=== PATIENT | female | born 1970 | race Caucasian/White ===

== ENCOUNTER 2018-07-24 07:45 | Observation (INO) | payer OTHER ==
--- NOTE | 2018-07-14 20:29 | HP ---
AMENDED REPORT NOW INCLUDES DESIGNATED COSIGNER PREOPERATIVE HISTORY AND PHYSICAL: DATE OF ADMISSION/SURGERY: 07/24/18 DATE OF OFFICE VISIT: 07/14/18 ATTENDING PHYSICIAN: Dr. Santa Navarro.* (DICTATED BY LAUREN ANTOINE) PROCEDURE: Left total knee arthroplasty. CHIEF COMPLAINT: Left knee pain. HISTORY OF PRESENT ILLNESS: Ms. Looney is a 47-year-old female with complaints of left knee pain. She has failed conservative management and has elected to proceed with left total knee arthroplasty, which is scheduled for 07/24/18. PAST MEDICAL HISTORY: Significant for asthma and osteoarthritis. PAST SURGICAL HISTORY: Left knee arthroscopy, , gastric bypass surgery. CURRENT MEDICATIONS: 1. Ibuprofen 800 mg 1 tab q.8 hours p.r.n. 2. Lasix 20 mg 1 by mouth 3 times weekly, mainly takes this in the summer, has not taken recently. 3. Singulair 10 mg 1 by mouth every day. 4. Xyzal daily. 5. Meloxicam 15 mg 1 tab by mouth with food once daily. ALLERGIES: No known drug allergies. FAMILY HISTORY: Cancer with her mother and diabetes. SOCIAL HISTORY: The patient lives with her , works as a nurse at [employer]. She denies use of tobacco, alcohol, or recreational drug use. REVIEW OF SYSTEMS: 14 systems were reviewed with the patient. Positive for left knee pain, swelling. Negative for fever, chills, chest pain, shortness of breath, vomiting, headache, or dizziness. PHYSICAL EXAMINATION GENERAL: She is alert and oriented x3, in no acute distress. VITAL SIGNS: Height 70 inches, weight 213 pounds. Pulse 88, BP 120/82, temp 99. BMI 30.6. HEENT: PERRLA. NECK: Supple. LUNGS: Clear to auscultation bilaterally. HEART: Regular rate and rhythm. No murmur auscultated. ABDOMEN: Soft, nontender. Normoactive bowel sounds x4 quadrants. MUSCULOSKELETAL: Left lower extremity shows her skin to be intact. No abrasions or open wounds. Moderate effusion of the left knee joint with tenderness along the medial joint line. She has roughly 12-degree valgus deformity. No varus or valgus instability. Tender along the medial joint line. 10 degrees to 120 degrees motion with patellofemoral crepitus. Circulation and sensation intact. Active dorsiflexion and plantarflexion of the left ankle. ASSESSMENT AND PLAN: Ms. Looney is a 47-year-old female with osteoarthritis of the left knee. She failed conservative management and has elected to proceed with a left total knee arthroplasty, which is scheduled for 07/24/[address] Navarro discussed risks and benefits of surgery at today's visit and all of her questions were answered. She will follow up with Dr. Navarro 2 weeks post surgery. LAUREN ANTOINE [id number]/[facility] #: [id number] [place]
[~2018-07-24 07:45] MED LIST: Acetaminophen IV 1GM/100ML * 1,000 MG/100 ML VIAL IVPB ONE; Buffered Lidocaine 0.9% SYRIN* 5 ML/SYR SYRINGE INTRADERM ONE; Dexamethasone IV* 4 MG/ML 1 ML (4 MG) IV SLOW PU ONE; Famotidine IV* 10 MG/ML 2 ML (20 mg) IV ONE; Gabapentin CAP(*) 300 MG PO ONE; Tranexamic Acid 1,000 MG in NS 0.9% 50 ML IV ONE; celeCOXIB CAP* 200 MG PO ONE
[2018-07-24] MEDS ORDERED: Dexamethasone IV* 4 MG/ML 1 ML (4 MG) ONE (09:04)
[2018-07-24] MEDS ORDERED: Famotidine IV* 10 MG/ML 2 ML (20 mg) ONE (09:04)
[2018-07-24] MEDS ORDERED: celeCOXIB CAP* 100 MG ONE (09:05)
[2018-07-24] MEDS ORDERED: Buffered Lidocaine 0.9% SYRIN* 5 ML/SYR SYRINGE ONE (09:05)
[2018-07-24] MEDS ORDERED: ceFAZolin 2 GM in NS PREMIX(*) 2 GM/100 ML BAG IVPB ONE (09:05)
[2018-07-24] MEDS ORDERED: Gabapentin CAP(*) 300 MG ONE (09:05)
[2018-07-24] MEDS ORDERED: Acetaminophen IV 1GM/100ML * 100 ML ONE (09:34)
[2018-07-24] MEDS ORDERED: fentaNYL* 50 MCG/ML 5 ML VIAL (250 MCG VIAL) ONE (09:47)
[2018-07-24] MEDS ORDERED: Atracurium* 10 MG/ML 10 ML VIAL ONE (09:47)
[2018-07-24] MEDS ORDERED: Midazolam* 1 MG/ML 5 ML VIAL (5 MG) ONE (09:47)
[2018-07-24] MEDS ORDERED: Ondansetron INJ* 2 MG/ML VIAL ONE ×2 (09:48→14:33)
[2018-07-24] MEDS ORDERED: Propofol* 10 MG/ML 20 ML BTL IV PUSH ONE (09:48)
[2018-07-24] MEDS ORDERED: Lidocaine 2% PF * 5 ML VIAL ONE (09:48)
[2018-07-24] MEDS ORDERED: ROPIVACAINE 5 MG/ML 30 ML BTL (0.5%) ONE (09:54)
[2018-07-24] MEDS ORDERED: Bupivacaine 0.5% SDV PF* 30ML VIAL ONE (10:18)
[2018-07-24] MEDS ORDERED: Glycopyrrolate IV* 0.2 MG/ML 1 ML VIAL ONE (10:37)
[2018-07-24] MEDS ORDERED: fentaNYL* 50 MCG/ML 2 ML VIAL (100 MCG VIAL) ONE ×4 (10:45→13:16)
[2018-07-24] MEDS ORDERED: Scopolamine 1.5 mg* PATCH TRANSDERM PRN (11:26)
[2018-07-24] MEDS ORDERED: Naloxone* 0.4 MG/ML 1 ML VIAL IV PRN (11:26)
[2018-07-24] MEDS ORDERED: DiMENhydriNATE IV* 50 MG/ML VIAL IV PUSH PRN (11:26)
[2018-07-24] MEDS ORDERED: Ondansetron INJ* 2 MG/ML VIAL IV PRN ×2 (11:26→12:36)
[2018-07-24] MEDS ORDERED: Bisacodyl SUPP* 10 MG SUPP PR PRN (12:36)
[2018-07-24] MEDS ORDERED: Cyclobenzaprine TAB* 10 MG PO PRN (12:36)
[2018-07-24] MEDS ORDERED: Morphine VIAL* 4 MG/ML VIAL (1 ml vial) IV PRN (12:36)
[2018-07-24] MEDS ORDERED: diPHENhydraMINE IV* 50 MG/ML 1 ml VIAL (BENADRYL) IV PRN (12:36)
[2018-07-24] MEDS ORDERED: Ondansetron ODT TAB* 4 MG PO PRN (12:36)
[2018-07-24] MEDS ORDERED: Polyethylene Glycol 3350* 17 GM PACKET PO PRN (12:36)
[2018-07-24] MEDS ORDERED: traMADol TAB* 50 MG PO PRN (12:36)
[2018-07-24] MEDS ORDERED: oxyCODONE/Acetamin 5/325 MG* TAB PO PRN (12:36)
[2018-07-24] MEDS ORDERED: Magnesium Hydroxide LIQ* 30 ML UDC PO PRN (12:36)
[2018-07-24] MEDS ORDERED: HYDROmorphone INJ1* 1 MG/ML SYRINGE ONE (12:39)
[2018-07-24] MEDS: HYDROmorphone INJ1* 1 MG/ML SYRINGE IV PRN ×3 (12:40→13:37)
[2018-07-24] MEDS: fentaNYL* 50 MCG/ML 2 ML VIAL (100 MCG VIAL) IV PRN ×3 (12:41→13:29)
[2018-07-24] MEDS ORDERED: Furosemide TAB* 20 MG PO PRN (12:41)
[2018-07-24] MEDS ORDERED: Albuterol HFA INHALER* 8 gm MDI INH PRN (12:41)
[2018-07-24] MEDS ORDERED: Levonorgestrel (IUD) (NF) 20 MCG/24 HR IUD IU SCH (13:00)
[2018-07-24] MEDS ORDERED: oxyCODONE/Acetamin 5/325 MG* TAB ONE (13:32)
[2018-07-24] MEDS: oxyCODONE/Acetamin 5/325 MG* TAB PO PRN (13:33)
--- NOTE | 2018-07-24 16:38 | PN ---
Progress Note - Progress Note Date of Service: 07/24/18 Note: patient recently took Percocet and is unable to be aroused. Per nurse she has is able to dorsi flex. Has a palpable 2+ DP pulse. VSS. dressing c/d/i
[2018-07-24] MEDS: Acetaminophen TAB* 325 MG PO SCH (18:08)
[2018-07-24] MEDS: ceFAZolin 1 GM in Dextrose (*) 1 GM/50 ML BAG IVPB SCH (18:28)
[2018-07-24] MEDS: Docusate CAP* 100 MG PO SCH (21:00)
[2018-07-24] MEDS: Magnesium Hydroxide LIQ* 30 ML UDC PO SCH (21:00)
[2018-07-24] MEDS: oxyCODONE TAB* 5 MG TAB PO PRN (22:01)
[2018-07-25] MEDS: ceFAZolin 1 GM in Dextrose (*) 1 GM/50 ML BAG IVPB SCH ×2 (02:07→09:50)
[2018-07-25] MEDS: Acetaminophen TAB* 325 MG PO SCH ×2 (02:11→09:35)
[2018-07-25 05:10] LABS: Hematocrit 32 % (35-47); Hemoglobin 10.6 g/dl (12.0-16.0); Mean Platelet Volume 9.1 fL (7.4-10.4); Platelet Count 238 10^3/ul (150-450)
[2018-07-25] MEDS: oxyCODONE/Acetamin 5/325 MG* TAB PO PRN ×3 (05:20→13:05)
[2018-07-25 05:25] LABS: INR 0.99 (0.77-1.02)
[2018-07-25 05:36] LABS: EGFR Non-African American 93.6 (>60)
[2018-07-25] MEDS: oxyCODONE TAB* 5 MG TAB PO PRN (08:03)
[2018-07-25] MEDS: Docusate CAP* 100 MG PO SCH (08:03)
[2018-07-25] MEDS: Magnesium Hydroxide LIQ* 30 ML UDC PO SCH (08:04)
[2018-07-25] MEDS ORDERED: Aspirin TAB* 325 MG PO SCH (09:00)
[2018-07-25] MEDS ORDERED: Cetirizine* 10 MG TAB PO SCH (09:00)
[2018-07-25] MEDS ORDERED: Montelukast Sodium TAB* 10 MG PO SCH (09:00)
[2018-07-25] MEDS ORDERED: Enoxaparin(*) 40 MG/0.4 ML SYR SUBCUT SCH (10:00)
--- NOTE | 2018-07-25 10:18 | PN ---
Progress Note - Progress Note Date of Service: 07/25/18 SOAP: Subjective: []Patient seen OOB in chair, doing well. No SOB, CP. Pain managed. Feels ready to go home. Objective: [] Vital Signs Temp 98.2 F 07/25/18 07:54 Pulse 69 07/25/18 07:54 Resp 16 07/25/18 09:56 BP 126/62 07/25/18 07:54 Pulse Ox 100 07/25/18 07:54 Intake & Output 07/24/18 07/25/18 07/25/18 18:59 06:59 18:59 Intake Total 1999 1250 230 Output Total 750 1500 Balance 1250 -250 230 Weight 214 lb Intake: IV Fluids 1999 lr 2000 IVPB 50 ABX - CEFAZOLIN 50 Oral 1200 230 Output: Ventura 500 1500 Estimated Blood Loss 250 Laboratory Results - last 24 hr 07/25/18 07/25/18 07/25/18 04:42 04:42 04:42 Hgb 10.6 L Hct 32 L Plt Count 238 MPV 9.1 INR (Anticoag Therapy) 0.99 Sodium 137 Potassium 3.7 Chloride 102 Carbon Dioxide 29 Anion Gap 6 BUN 12 Creatinine 0.67 Est GFR ( Amer) 113.2 Est GFR (Non-Af Amer) 93.6 BUN/Creatinine Ratio 17.9 Glucose 105 H Calcium 8.4 L Knee dressing changed, wound benign, no drainage calf NT and soft NVI distally Assessment: []s/p LTK POD #1 Plan: []PT/OT- home later today after afternoon PT session. ASA 325 mg po BID for DVT prophylaxis Percocet 5/325 mg med to bed Follow up with Dr. Navarro 10-14 days as scheduled.
--- NOTE | 2018-07-25 11:02 | OP ---
OPERATIVE REPORT: DATE OF OPERATION: 07/24/18. DATE OF : 68. ATTENDING SURGEON: Santa Navarro MD. SOAPSTONER: LAUREN Talavera. Ms. Quiroz did help throughout the procedure with preparation of the leg, wound retraction, manipul ation of the knee, and wound closure. ANESTHESIOLOGIST: Dr. Best. ANESTHESIA: Spinal. PRE-OP DIAGNOSIS: Severe endstage degenerative osteoarthritis of the left knee joint with valgus de formity. POST-OP DIAGNOSIS: Severe endstage degenerative osteoarthritis of the left knee joint with valgus de formity. OPERATIVE PROCEDURE: Left total knee arthroplasty. TOURNIQUET TIME: 48 minutes. COMPLICATIONS: None. ESTIMATED BLOOD LOSS: 200 mL. SPECIMEN: Bone and cartilage from the left knee joint sent to Pathology. HARDWARE USED: This is cemented [employer] total knee arthroplasty hardware. Two packages of S implex bone cement. For the femur, left, a size 6 narrow, Oxinium, posterior stabilized, Legion femo ral component. For the tibia, size 5, left Elvia II tibial base plate. For the insert, a 9-mm pos terior stabilized articular insert, size 5/6 and for the patella, a 35-mm 3 peg all poly patella with 7.5 thickness. BRIEF HISTORY/INDICATIONS: Ms. Looney is a 48-year-old female with years of increasingly severe l eft knee pain and increasing valgus deformity. She failed conservative treatment with antiinflammato florian, pain medications, intra-articular injections, and physical therapy. Radiographs showed bone-on -bone arthritis. Due to continued pain and decreased quality of life, the patient elected to undergo a left total knee arthroplasty. Informed consent was obtained from the patient. The patient understood the risks of surgery included , but were not limited to, bleeding, infection, damage to nearby structures, continued pain, need for further surgery, intraoperative fracture, nerve palsy, hardware failure or loosening, knee stiffness , loss of motion, stroke, heart attack, blood clot, and . She wished to proceed. INTRAOPERATIVE FINDINGS: Intraoperatively, the patient was noted to have severe endstage arthritis w ith complete loss of cartilage in all 3 compartments. She had a 12-degree valgus deformity and 10-de gree flexion contracture to begin the case. These were corrected to anatomic full extension and 5 deg letty valgus by the end of the case. She was noted to have extensive osteophyte formation around the entire distal femur and patella. DESCRIPTION OF PROCEDURE: Ms. Looney was identified in the preanesthesia unit. Her left lower ext remity was marked as the correct operative side. Informed consent was signed and placed in the chart . The patient was taken to the operating room and placed under spinal anesthesia. A Ventura catheter was placed. Tourniquet was placed on the left thigh. Left lower extremity was prepped and draped in the usual sterile fashion. Preop time-out was made to correctly identify the patient's side and sit e. Appropriate perioperative antibiotics were given within 1 hour of incision. Tourniquet was inflated and total tourniquet time for this procedure was 48 minutes. A midline incis ion was made and carried down to the extensor mechanism. A new 10 blade was used to make a standard m edial parapatellar arthrotomy. Patella was subluxed laterally. Electrocautery was used to subperios teally elevate soft tissue off the superomedial tibia to the mid sagittal plane. The knee was flexed up. The anterior horn of the lateral meniscus and ACL were sharply released. A drill was used to e nter the distal femur. Intramedullary distal femoral cutting guide was pinned on the distal femur. An oscillating saw was used to make the distal femoral cut. Next, the external rotation guide was pi nned on the distal femur. The distal femur was sized to a size 6. A size 6 multi-cutting jig was pi nned on the distal femur. Oscillating saw was used to make the appropriate 4 chamfer cuts. The PCL was completely released. Tibia was subluxed anteriorly. Extramedullary tibial cutting guide was pinned on the proximal tibia. Proximal tibial cut was made with an oscillating saw perpendicula r to the mechanical axis of the tibia. The bone was carefully removed. The knee was brought out into full extension. The spacer block had excellent fit with the knee in full extension. There was medi al and lateral ligamentous balancing. Flexion and extension gaps were well balanced. The knee was fl exed up. Lamina fresh foods technician was placed both medially and laterally. Any remaining meniscus was carefull y removed using electrocautery. Curved osteotome was used to remove any posterior osteophytes. Tibi al tray and drop demond were placed and confirmed a satisfactory tibial cut. A size 6 left narrow femoral trial was impacted on to the distal femur and had excellent stability. The box for the posterior stabilized implant was prepared using a reamer and box cut osteotome. A si ze 5 tibial tray trial with a 9-mm insert trial was placed and the knee was taken through a range of motion. The knee was stable with full extension to 130 degrees of flexion. Patellofemoral tracking was satisfactory. The patella was everted. 7 mm of patellar bone and cartilage were carefully remov ed using an oscillating saw. The patella was sized to a size 35. Three peg holes were drilled throu gh the size 35 guide. A 35 trial patella with a 7.5 thickness was chosen and placed. The knee was t aken through a range of motion and noted to have satisfactory patellofemoral tracking. All trials were carefully removed. The tibia was subluxed anteriorly and sized to a size 5. A size 5 keel punch was used to prepare the proximal tibia. All bony cut surfaces were copiously irrigated with sterile saline and dried. Final implants were dalia ented into place starting with the tibia followed by the femur and last the patella. A 9-mm insert t rial was placed while the knee was brought out into full extension. The tourniquet was turned down a t 48 minutes. Electrocautery was used to obtain meticulous hemostasis. The knee was copiously irriga delmy with sterile saline. Once the cement had fully cured, the insert trial was removed. Any excess cement was removed from around the capsule and hardware. A 9-mm insert trial size 5/6 posterior stabilized was chosen at the final insert. This was locked int o position on the tibial tray. Stability of the insert was checked and rechecked and noted to be sta ble. The knee was once again copiously irrigated with sterile saline. The extensor mechanism was closed u sing interrupted #1 Vicryls. The rest of the incisions were closed in layered fashion using 0 and 2- 0 Vicryls. The skin was closed using running 3-0 nylon suture. Sterile Xeroform, 4x4s, and Webril w ere used to cover the incision. DONNA wrap and cold pack were placed over this. The patient's anesthe antoine was reversed without difficulty. She was taken to the PACU in stable condition. Intended weight bearing will be weightbearing as tolerated. Intended DVT prophylaxis will be Coumadin with a Lovenox bridge. [id number]/[facility] #: [id number]
[2018-07-25 13:13] VITALS: BP 123/64
--- NOTE | 2018-07-26 06:20 | DS ---
DISCHARGE SUMMARY: DATE OF ADMISSION: 07/24/18 DATE OF DISCHARGE: 07/25/18 ATTENDING PHYSICIAN: Dr. Santa Navarro.* (DICTATED BY LAUREN ANTOINE) ADMISSION DIAGNOSIS: Severe end-stage degenerative osteoarthritis of the left knee with valgus deformity. DISCHARGE DIAGNOSIS: Severe end-stage degenerative osteoarthritis of the left knee with valgus deformity. SURGERY PERFORMED: Left total knee arthroplasty. HOSPITAL COURSE: The patient is a 48-year-old female with years of increasingly severe left knee pain and increasing valgus deformity. She failed conservative management with anti-inflammatories, pain medications, intraarticular injections, and physical therapy. Her x-rays revealed bone-on- bone arthritis and due to continued pain and decreased quality of life, she elected to proceed with left total knee arthroplasty. She was taken to the operating room under the care of Dr. Santa Navarro on the date of 07/24/18. She tolerated the procedure well and left the operating room in stable condition. Initially, she had some difficulty waking up from anesthesia, but overall she did very well from then on. She had no postoperative complications. Her pain was under excellent control and she mastered her physical therapy and occupational therapy goals on postoperative day 1 without difficulty. It was felt that she was stable for discharge to home on the date of 07/25/18. CONDITION ON DISCHARGE: She is afebrile. Her vital signs are stable. Her dressings were changed on the left knee and her wound is benign. Her calf is soft and nontender. There is full dorsiflexion and plantar flexion of the left ankle. PLAN: Discharge to home. She will do outpatient physical therapy and a prescription has been provided. She will be on aspirin 325 mg p.o. b.i.d. for DVT prophylaxis. Percocet 5/325 one to two tablets p.o. q.4 hours p.r.n. [facility] She will follow up in roughly 10 to [address] Navarro as scheduled in the office. LAUREN ANTOINE [id number]/[facility] #: [id number] [facility]
== END 2018-07-25 14:00 | disposition home or self-care (01) ==
LOC: OR 07:45 → SSU 12:37 → INTOOBSV 12:37
PROVIDERS: ADMIT Orthopaedic Surgery Adult Reconstructive Orthopaedic Surgery; ATTEND Orthopaedic Surgery Adult Reconstructive Orthopaedic Surgery
DX: M17.12 Unilateral primary osteoarthritis, left knee (principal); M13.862 Other specified arthritis, left knee
CPT/HCPCS: 36415; 80048; 85014; 85018; 85049; 85610; 88305; 88311; 96372; 96374; 96375; 96376; A9270-GY; C1776; G0378; J0690; J1100; J1170; J2250; J2405; J2704; J2795; J3010

== ENCOUNTER 2020-08-05 06:26 | Observation (INO) ==
[~2020-08-05 06:26] MED LIST changes: -Acetaminophen IV 1GM/100ML * 1,000 MG/100 ML VIAL IVPB ONE; -Buffered Lidocaine 0.9% SYRIN* 5 ML/SYR SYRINGE INTRADERM ONE; +Buffered Lidocaine 1% SYRIN 1 ml INTRADERM ONE; +Dexamethasone IV 4 MG/ML VIAL 1 ml VIAL IV SLOW PU ONE; -Dexamethasone IV* 4 MG/ML 1 ML (4 MG) IV SLOW PU ONE; +Famotidine IV 10 MG/ML 2 ml VIAL (20 mg) IV ONE; -Famotidine IV* 10 MG/ML 2 ML (20 mg) IV ONE; -Gabapentin CAP(*) 300 MG PO ONE; +Lactated Ringers 1000 ml BAG 1,000 ML IV SCH; -Tranexamic Acid 1,000 MG in NS 0.9% 50 ML IV ONE; -celeCOXIB CAP* 200 MG PO ONE
[2020-08-05] MEDS ORDERED: ceFAZolin 2 GM PREMIX 2 GM/50 ML BAG ONE (07:31)
[2020-08-05] MEDS ORDERED: Dexamethasone IV 4 MG/ML VIAL 1 ml VIAL ONE (07:31)
[2020-08-05] MEDS ORDERED: Famotidine IV 10 MG/ML 2 ml VIAL (20 mg) ONE (07:31)
[2020-08-05] MEDS ORDERED: fentaNYL 100 mcg/2 ml 50 MCG/ML VIAL ONE ×3 (08:17→11:01)
[2020-08-05] MEDS ORDERED: Midazolam 2 mg/2 ml VIAL 1 mg/ml 2 ml VIAL (2 mg) ONE (08:17)
[2020-08-05] MEDS ORDERED: ROPIVACAINE 5 MG/ML 30 ML BTL (0.5%) ONE ×2 (08:19→08:34)
[2020-08-05] MEDS ORDERED: Propofol 10 MG/ML 20 ML BTL ONE (08:44)
[2020-08-05] MEDS ORDERED: Lidocaine 2% PF 5 ML VIAL ONE (08:44)
[2020-08-05] MEDS ORDERED: Ketamine HCL 50 mg/ml 10 ml VIAL (500 MG) ONE (09:11)
[2020-08-05] MEDS ORDERED: Prochlorperazine 5 mg/ml 2 ml VIAL (10 mg) IV PRN (10:03)
[2020-08-05] MEDS ORDERED: Morphine 4 MG/ML VIAL (1 ml) IV PRN (10:03)
[2020-08-05] MEDS ORDERED: Naloxone 0.4 mg VIAL 0.4 mg/ml 1 ml VIAL IV PRN (10:03)
[2020-08-05] MEDS ORDERED: Acetaminophen IV 1 GM/100ML 1,000 MG/100 ML VIAL IVPB ONE (10:03)
[2020-08-05] MEDS ORDERED: Ondansetron 4 mg VIAL 2 MG/ML 2 ml VIAL ONE (10:39)
[2020-08-05] MEDS ORDERED: Lactulose 30 ml UDC PO PRN (11:55)
[2020-08-05] MEDS ORDERED: Magnesium Hydroxide LIQ 30 ML UDC PO PRN (11:55)
[2020-08-05] MEDS ORDERED: Ondansetron 4 mg VIAL 2 MG/ML 2 ml VIAL IV PRN (11:55)
[2020-08-05] MEDS ORDERED: oxyCODONE/Acetamin 5/325 mg TAB PO PRN ×2 (11:55)
[2020-08-05] MEDS ORDERED: diPHENhydraMINE IV 50 MG/ML 1 ml VIAL (BENADRYL) IV PRN (11:55)
[2020-08-05] MEDS ORDERED: Ondansetron ODT 4 mg TAB 4 MG TAB PO PRN (11:55)
[2020-08-05] MEDS ORDERED: diPHENhydraMINE 25 mg TAB PO PRN (11:55)
[2020-08-05] MEDS ORDERED: Lactated Ringers 1000 ml BAG 1,000 ML IV SCH (12:00)
[2020-08-05] MEDS: fentaNYL 100 mcg/2 ml 50 MCG/ML VIAL IV PRN ×2 (12:00→12:18)
[2020-08-05] MEDS ORDERED: Levonorgestrel (IUD) (NF) 20 MCG/24 HR IUD IU SCH (13:00)
[2020-08-05] MEDS ORDERED: Albuterol HFA INHALER 8 gm MDI INH PRN (13:13)
[2020-08-05 15:09] VITALS: BP 120/66
[2020-08-05] MEDS ORDERED: ceFAZolin 1 GM ADVAN 1 GM in NS 0.9% 50 ML 50 ML IVPB SCH (17:00)
[2020-08-05] MEDS ORDERED: Magnesium Hydroxide LIQ 30 ML UDC PO SCH (21:00)
[2020-08-06] MEDS ORDERED: Vitamin THERAPEUTIC TAB PO SCH (09:00)
== END 2020-08-05 17:20 | disposition home or self-care (01) ==
LOC: INTOOBSV 06:26 → AA 06:26 → SSU 12:52
PROVIDERS: ADMIT Orthopaedic Surgery Adult Reconstructive Orthopaedic Surgery; ATTEND Orthopaedic Surgery Adult Reconstructive Orthopaedic Surgery